=== PATIENT | male | born 1985 | race African-American/Black ===

== ENCOUNTER 2016-05-15 22:00 | Emergency (ER) | payer OTHER ==
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
[2016-05-15] MEDS ORDERED: BUPIVACAINE HCL/PF 5 MG/ML 10ML VIAL IV ONE (23:28)
[2016-05-15] MEDS: BUPIVACAINE HCL/PF 5 MG/ML 10ML VIAL IJ ONE (23:46)
[2016-05-16] MEDS: NEOMYCIN SU/BACITRAC ZN/POLY 1 EACH OINT.PACK TP ONE (00:07)
[2016-05-16] MEDS ORDERED: AMOXICILLIN/POT 875/125 1 EACH PO ONE (00:11)
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
[2016-05-16 04:03] VITALS: BP 143/74
== END 2016-05-16 00:18 | disposition home or self-care (01) ==
LOC: ED 22:00
DX: S01.81XA Laceration without foreign body of other part of head, initial encounter (principal); S02.80XA Fracture of other specified skull and facial bones, unspecified side, initial encounter for closed fracture; W19.XXXA Unspecified fall, initial encounter; Y93.9 Activity, unspecified; Y99.9 Unspecified external cause status
CPT/HCPCS: 70486; J3490; 12011; 90471; 99283; 99284